=== PATIENT | male | born 1980 | race Caucasian/White ===

== ENCOUNTER 2016-10-21 09:38 | Emergency (ER) | payer OTHER ==
--- NOTE | 2016-10-21 11:28 | ER PHYSICIAN DOCUMENTATION ---
Physician Documentation [facility] Name:Vinnie Shelley Age:36 yrs Sex:Male :1980 Arrival Date:10/21/2016 Time:09:38 Bed5 Private MD: Abdiel Reilly Disposition: 10/21 11:30 Chart complete. tl1 Disposition: 10/21/16 11:16 Discharged to Home/Self Care. Impression: Hand Laceration. - Condition is Good. - Discharge Instructions: LACERATION, Hand. - Prescriptions for Keflex 500 mg Oral - take 1 capsule by ORAL route every 6 hours for 5 days; 20 capsule. - Medical Reconciliation form form. - Follow up: Private Physician; When: 10 - 14 days; Reason: Staple/Suture removal. - Problem is new. - Symptoms have improved. HPI: 09:51 This 36 yrs old Male presents to ER via Private Vehicle with complaints of tl1 Laceration To Hand. 10:00 The laceration(s) is(are) located on the right hand thenar eminence. Onset: The tl1 symptom(s)/episode began/occurred suddenly, just prior to arrival. Cut by a piece of tin at work.. Historical: - Allergies: No known drug Allergies; - Home Meds: 1. None - PMHx: None; - PSHx: None; - Tetanus: > 10 years. - Ebola Screening: : Patient negative for fever greater than or equal to 101.5 degrees Fahrenheit, and additional compatible Ebola Virus Disease symptoms. - Immunization history: Flu Vaccine None. - Social history: Smoking status: Patient uses tobacco products, current every day smoker. ROS: 10:00 Skin: Positive for laceration(s). tl1 10:00 All other systems are negative. Exam: 10:00 Musculoskeletal/extremity: Extremities: grossly normal except: noted in the right tl1 thenar eminence: laceration. 10:00 Constitutional: This is a well developed, well nourished patient who is awake, alert, and in no acute distress. 10:00 Skin: Appearance: normal except for affected area, injury, laceration(s), the wound is approximately 1.5 cm(s), with a depth of 0.3 cm(s), that can be described as clean, no foreign body, linear, without bleeding. Vital Signs: 09:51 BP 125 / 93; Pulse 72; Resp 16; Temp 98.6(O); Pulse Ox 95% on R/A; Weight 86.18 kg; rh Height 5 ft. 6 in. (167.64 cm); Pain 3; 09:51 Body Mass Index 30.67 (86.18 kg, 167.64 cm) rh Laceration: 10:00 Wound Repair of 1.5cm ( 0.6in ) subcutaneous laceration to right hand. Distal tl1 neuro/vascular/tendon intact. Anesthesia: Wound infiltrated with 3 mls of 1% lidocaine. Wound prep: Extensive cleansing, Copious irrigation. Skin closed with 3 3-0 Prolene using Interrupted sutures. Dressed with Bacitracin, Kerlix, coban. Patient tolerated well. MDM: 09:51 Patient medically screened. tl1 10:00 Data reviewed: vital signs, nurses notes, , and as a result, I will discharge patient. tl1 Counseling: I had a detailed discussion with the patient and/or guardian regarding: the historical points, exam findings, and any diagnostic results supporting the discharge/admit diagnosis, the need for outpatient follow up, to return to the emergency department if symptoms worsen or persist or if there are any questions or concerns that arise at home. Response to treatment: the patient's symptoms have markedly improved after treatment, and as a result, I will discharge patient. 10/21 09:52 Order name: Wound Care; Complete Time: 10:28 rh Dispensed Medications: No medications were administered Signatures: Abdiel Rodas MD MD tl1 Elis Graham
--- NOTE | 2016-10-21 11:28 | ER NURSING DOCUMENTATION ---
Nurse's Notes [facility] Name:Vinnie Shelley Age:36 yrs Sex:Male :1980 Arrival Date:10/21/2016 Time:09:38 Bed5 Private MD: Diagnosis:Hand Laceration Presentation: 10/21 09:40 Acuity: OUSMANE 4 rh 09:50 Presenting complaint: Patient states: PT cut the palm of his hand on a pipe. Transition rh of care: Other WORK. Complicating Factors: There are no complicating factors for this patient. 09:50 Method Of Arrival: Private Vehicle rh Triage Assessment: 09:50 General: Appears in no apparent distress, Behavior is cooperative. Pain: Complains of rh pain in palm of right hand. Musculoskeletal: Circulation, motion, and sensation intact Range of motion intact in all extremities. Injury Description: Laceration sustained to palm of right hand is clean, jagged, 0.5 to 2.5 cm long, was sustained 30-60 minutes ago. is bleeding a small amount. Historical: - Allergies: No known drug Allergies; - Home Meds: 1. None - PMHx: None; - PSHx: None; - Tetanus: > 10 years. - Ebola Screening: : Patient negative for fever greater than or equal to 101.5 degrees Fahrenheit, and additional compatible Ebola Virus Disease symptoms. - Immunization history: Flu Vaccine None. - Social history: Smoking status: Patient uses tobacco products, current every day smoker. Screenin:52 Infectious Disease Risk None. Abuse screen: Denies threats or abuse. Denies injuries rh from another. Nutritional screening: No deficits noted. Assessment: 09:52 See Triage Assessment done by same RN. rh Vital Signs: 09:51 BP 125 / 93; Pulse 72; Resp 16; Temp 98.6(O); Pulse Ox 95% on R/A; Weight 86.18 kg; rh Height 5 ft. 6 in. (167.64 cm); Pain 3/10; 09:51 Body Mass Index 30.67 (86.18 kg, 167.64 cm) rh ED Course: 09:39 Patient arrived in ED. dp 09:40 Elis Graham is Primary Nurse. rh 09:40 Triage completed. rh 09:51 Abdiel Rodas MD is Attending Physician. tl1 09:52 Notified ED Physician of patient's arrival and chief complaint. Dr. Rodas notified. rh 09:52 Valuables Remains with patient Patient has correct armband on for positive rh identification. Bed in low position. Call light in reach. 11:00 Wound care to laceration located on palm of right hand was cleaned with soap and water, rh Irrigation Normal Saline Patient tolerated well. 11:05 Assist Provider Assist provider with laceration repair on palm of right hand that was rh 2.5 cm. or less using sutures. Set up tray. Performed by Abdiel Rodas MD Dressed with 4X4s, Kerlix, Neosporin, Patient tolerated well. Administered Medications: No medications were administered Outcome: 11:16 Discharge ordered by . tl1 11:27 Discharged to home ambulatory, with friend. 11:27 Condition: improved 11:27 Discharge Assessment: Patient awake, alert and oriented x 3. No cognitive and/or functional deficits noted. Patient verbalized understanding of disposition instructions. 11:27 Discharge instructions given to patient, Instructed on discharge instructions, follow up and referral plans. medication usage, wound care, Demonstrated understanding of instructions, medications, Prescriptions given X 1. 11:28 Patient left the ED. 07 11:32 Discharge F/U Call: Spoke with: patient. How are you managing your pain? Patient is rh taking medication: tylenol and ibuprofen Signatures: Abdiel Rodas MD MD tl1 Elis Graham rh Jamin, Deann dp
== END 2016-10-21 11:28 | disposition home or self-care (01) ==
LOC: ER 09:38
DX: S61.411A Laceration without foreign body of right hand, initial encounter (principal); W26.8XXA Contact with other sharp object(s), not elsewhere classified, initial encounter; Y92.69 Other specified industrial and construction area as the place of occurrence of the external cause; Y93.H3 Activity, building and construction; Y99.0 Civilian activity done for income or pay
CPT/HCPCS: 12041; 99283